=== PATIENT | female | born 2000 | race Caucasian/White ===

== ENCOUNTER 2018-02-10 21:13 | Emergency (ER) | payer OTHER ==
[~2018-02-10] VITALS: Ht 170.2 cm; Wt 52.2 kg
[2018-02-10] MEDS ORDERED: MIDAZOLAM HCL 2 MG/2 ML VIAL IM STA (22:05)
[2018-02-10] MEDS ORDERED: ONDANSETRON HCL 4 MG ORAL DISINTEGRATING TAB PO ONE ×2 (22:45)
[2018-02-10 23:27] VITALS: BP 120/70
== END 2018-02-10 23:18 | disposition home or self-care (01) ==
LOC: FSED 21:13
DX: S50.01XA Contusion of right elbow, initial encounter (principal); S50.11XA Contusion of right forearm, initial encounter; S60.211A Contusion of right wrist, initial encounter; F44.5 Conversion disorder with seizures or convulsions
CPT/HCPCS: 99283

== ENCOUNTER 2018-03-27 13:36 | Emergency (ER) | payer OTHER ==
[~2018-03-27] VITALS: Ht 170.2 cm; Wt 52.2 kg
[2018-03-27] MEDS ORDERED: MIDAZOLAM HCL 2 MG/2 ML VIAL ONE ×2 (14:15→14:45)
[2018-03-27 14:25] LABS: BASOPHILS % 0.6 % (0.0-1.0); EOSINOPHILS # (AUTO) 0.1 (0.0-0.4); EOSINOPHILS % 1.7 % (0.0-6.0); HEMATOCRIT 39.2 % (34.2-44.1); HEMOGLOBIN 13.1 g/dL (12.0-16.0); LYMPHOCYTES # (AUTO) 1.6 (1.0-3.2); LYMPHOCYTES % 21.9 % (18.0-39.1); MEAN CORPUSCULAR HGB CONC 33.4 g/dL (31-35); MEAN CORPUSCULAR VOLUME 89.7 fL (81-99); MONOCYTES % 13.4 % (4.4-11.3); NEUTROPHILS # (AUTO) 4.4 (2.1-6.9); NEUTROPHILS % 62.1 % (38.7-80.0); PLATELET COUNT 281 x10e3/uL (140-360); RED BLOOD COUNT 4.37 x10e6/uL (3.6-5.1); RED CELL DISTRIBUTION WIDTH 12.5 % (11.7-14.4)
[2018-03-27 14:47] LABS: ALANINE AMINOTRANSFERASE 12 IU/L (0-55); ALBUMIN/GLOBULIN RATIO 1.3 (0.8-2.0); ALKALINE PHOSPHATASE 91 IU/L (40-150); ANION GAP 12.9 mmol/L (8-16); BLOOD UREA NITROGEN 7 mg/dL (7-26); BUN/CREATININE RATIO 9 (6-25); CALCIUM 9.9 mg/dL (8.4-10.2); CARBON DIOXIDE 25 mmol/L (22-29); CHLORIDE 105 mmol/L (98-107); CREATININE, SERUM 0.78 mg/dL (0.57-1.11); EST GLOMERULAR FILTRATION RATE > 60 ML/MIN (60-); GLUCOSE 106 mg/dL (74-118); POTASSIUM 3.9 mmol/L (3.5-5.1); SODIUM 139 mmol/L (136-145)
[2018-03-27 17:19] LABS: BILIRUBIN,URINE NEGATIVE (NEGATIVE); CLARITY,URINE CLEAR (CLEAR); COLOR,URINE YELLOW (YELLOW); KETONES,URINE NEGATIVE (NEGATIVE); LEUKOCYTE ESTERASE ,URINE NEGATIVE (NEGATIVE); NITRITE,URINE NEGATIVE (NEGATIVE); PROTEIN,URINE DIPSTICK NEGATIVE (NEGATIVE); URINE UROBILINOGEN 0.2 mg/dL (0.2 - 1)
[2018-03-27 17:20] LABS: AMPHETAMINES SCREEN,URINE NEGATIVE (NEGATIVE); BENZODIAZEPINES SCREEN,URINE NEGATIVE (NEGATIVE); PHENCYCLIDINE SCREEN,URINE NEGATIVE (NEGATIVE)
[2018-03-27 17:29] LABS: BACTERIA,URINE MODERATE /HPF; EPITHELIAL CELLS,URINE MODERATE /LPF; TRANSITIONAL EPI CELLS,URINE FEW
[2018-03-27 17:59] VITALS: BP 106/78
== END 2018-03-27 17:56 | disposition home or self-care (01) ==
LOC: ER 13:36
DX: R56.9 Unspecified convulsions (principal)
CPT/HCPCS: 36415; 80053; 80307; 81001; 85025; 99284; J2250

== ENCOUNTER → 2018-06-20 | Day surgery (SDC) | payer OTHER ==
[~2018-06-20] VITALS: Ht 170.2 cm; Wt 49.9 kg
[~2018-06-20] MED LIST: ALBUTEROL0.63 MG/3 INH; DIPHENHYDRAMINE HCL 25 MG CAP ONE; FENTANYL CITRATE/PF 100MCG/2 ML INJ ONE; FLUDROCORTISON0.1 MG PO; LIDOCAINE 1% W/EPINEPHRINE 20 ML VIAL ONE; LIDOCAINE HCL 2% LOCAL 20 ML VIAL ONE; ZOLOFT50 MG PO
--- OUTSIDE RECORDS SUMMARY | 2018-06-20 11:05 | XMS REPORT | Clinical Summary ---
Author Author [facility] Address Unknown Phone Unavailable Care Team Providers Care Inventory Planner Name Role Phone Tonya Siegel MD PCP Allergies Comments Active Allergy Reactions Severity Noted Date Lorazepam 01/08/2018 No Known Drug Allergies 09/03/2015 Hydrocodone-Acetaminophen 09/17/2015 Medications End Date Status Medication Sig Dispensed Refills Start Date Active clonAZEPAM (KlonoPIN) 0.5 Take 1 tablet 0 11/18/201 MG disintegrating tablet by mouth 2 8 (two) times a day as needed. 01/08/2018 Discontinued medroxyPROGESTERone Inject 150 mg 0 (DEPO-PROVERA) 150 mg/mL into the injection shoulder, thigh, or buttocks every 3 (three) months. 01/08/2018 Discontinued sertraline (ZOLOFT) 50 MG TAKE 1/2 A 90 tablet 0 02/04/201 tablet TABLET BY 7 MOUTH EVERY DAY AFTER EATING FOR 1 WEEK, THEN INCREASE TO 1 TABLET BY MOUTH EVERY DAY AFTER EATING. 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 Urinary tract infection 09/03/2015 Retention of urine 09/03/2015 Encounters Care Team Description Date Type Specialty Mohit Reese MD 04/17/2018 Hospital Access Encounter N/A 04/17/2018 Intake Access Nito Cabezas MD Teqwimuah, Remy, DO Episode of shaking (Primary Dx); Side effects of treatment, initial encounter 01/08/2018 Emergency Emergency Medicine N/A 01/08/2018 Intake Access after 06/19/2017 Social History Date Tobacco Use Types Packs/Day Years Used Never Smoker Smokeless Tobacco: Never Used Alcohol Use Drinks/Week oz/Week Comments No Sex Assigned at Date Recorded Not on file Industry Job Start Date Occupation Not on file Not on file Not on file Travel End Travel History Travel Start No recent travel history available. Last Filed Vital Signs Time Taken Vital Sign Reading 01/08/2018 5:00 PM CDT Blood Pressure 94/59 01/08/2018 5:00 PM CDT Pulse 96 01/08/2018 5:00 PM CDT Temperature 37 C (98.6 F) 01/08/2018 5:00 PM CDT Respiratory Rate 20 01/08/2018 5:00 PM CDT Oxygen Saturation 99% - Inhaled Oxygen - Concentration 01/08/2018 12:02 AM CDT Weight 52.2 kg (115 lb) 01/08/2018 12:02 AM CDT Height 172.7 cm (5' 8") 01/08/2018 12:02 AM CDT Body Mass Index 17.49 Plan of Treatment Health Maintenance Due Date Last Done Comments CHLAMYDIA SCREENING 2014 MENINGOCOCCAL VACCINE (1 2014 - 2-dose series) INFLUENZA VACCINE 02/12/2018 HEPATITIS B VACCINES Aged Out No longer eligible based on patient's age to complete this topic IPV VACCINES Aged Out No longer eligible based on patient's age to complete this topic Procedures Comments Procedure Name Priority Date/Time Associated Diagnosis ZZESTIMATED GFR Routine 01/08/2018 3:44 AM CDT BASIC METABOLIC PANEL Routine 01/08/2018 3:44 AM CDT HC COMPLETE BLD COUNT Routine 01/08/2018 W/AUTO DIFF 3:[address] HEAD WO CONTRAST STAT 01/08/2018 1:07 AM CDT URINE DRUGS OF ABUSE STAT 01/08/2018 SCREEN 12:39 AM CDT ZZESTIMATED GFR STAT 01/08/2018 12:05 AM CDT HCG QUALITATIVE, SERUM STAT 01/08/2018 SCREEN 12:05 AM CDT ALCOHOL LEVEL, BLOOD STAT 01/08/2018 12:05 AM CDT HC COMPLETE BLD COUNT STAT 01/08/2018 W/AUTO DIFF 12:05 AM CDT BASIC METABOLIC PANEL STAT 01/08/2018 12:05 AM CDT after 06/19/2017 Results * Estimated GFR (01/08/2018 3:44 AM CDT) Only the most recent of 2 results within the time period is included. GFR Non Af Amer >90 mL/min/1.73 m2 [facility] DEPARTMENT OF PATHOLOGY AND GENOMIC MEDICINE GFR Af Amer >90 mL/min/1.73 m2 [facility] DEPARTMENT OF Comment: PATHOLOGY AND Chronic kidney disease: <60 GENOMIC MEDICINE mL/min/1.73m2 Kidney failure: <15 mL/min/1.73m2 The estimated GFR is calculated from the IDMS-traceable Modification of Diet in Renal Disease Equation. The accuracy of the calculation is poor when the creatinine is normal. Calculated values >90 mL/min/1.73m2 are not reported. This equation has not been validated in children (<18 years), women, the elderly (>70 years), or ethnic groups other than Caucasians and Americans. Specimen Plasma specimen Performing Organization Address City/State/Zipcode Phone Number [facility] [place] [address] [place] [address] PATHOLOGY AND [employer] MEDICINE * CBC with platelet and differential (01/08/2018 3:44 AM CDT) Only the most recent of 2 results within the time period is included. WBC 11.35 (H) 4.50 - 11.00 k/uL [facility] DEPARTMENT OF PATHOLOGY AND GENOMIC MEDICINE RBC 4.14 (L) 4.20 - 5.50 m/uL [facility] DEPARTMENT OF PATHOLOGY AND GENOMIC MEDICINE HGB 12.0 12.0 - 16.0 g/dL [facility] DEPARTMENT OF PATHOLOGY AND GENOMIC MEDICINE HCT 36.3 (L) 37.0 - 47.0 % [facility] DEPARTMENT OF PATHOLOGY AND GENOMIC MEDICINE MCV 87.7 82.0 - 100.0 fL [facility] DEPARTMENT OF PATHOLOGY AND GENOMIC MEDICINE MCH 29.0 27.0 - 34.0 pg [facility] DEPARTMENT OF PATHOLOGY AND GENOMIC MEDICINE MCHC 33.1 31.0 - 37.0 g/dL [facility] DEPARTMENT OF PATHOLOGY AND GENOMIC MEDICINE RDW - SD 41.3 37.0 - 55.0 fL [facility] DEPARTMENT OF PATHOLOGY AND GENOMIC MEDICINE MPV 9.2 8.8 - 13.2 fL [facility] DEPARTMENT OF PATHOLOGY AND GENOMIC MEDICINE Platelet count 290 150 - 400 k/uL [facility] DEPARTMENT OF PATHOLOGY AND GENOMIC MEDICINE Nucleated RBC 0.00 /100 WBC [facility] DEPARTMENT OF PATHOLOGY AND GENOMIC MEDICINE Neutrophils 50.3 39.0 - 69.0 % [facility] DEPARTMENT OF PATHOLOGY AND GENOMIC MEDICINE Lymphocytes 40.2 25.0 - 45.0 % [facility] DEPARTMENT OF PATHOLOGY AND GENOMIC MEDICINE Monocytes 7.6 0.0 - 10.0 % [facility] DEPARTMENT OF PATHOLOGY AND GENOMIC MEDICINE Eosinophils 1.2 0.0 - 5.0 % [facility] DEPARTMENT OF PATHOLOGY AND GENOMIC MEDICINE Basophils 0.4 0.0 - 1.0 % [facility] DEPARTMENT OF PATHOLOGY AND GENOMIC MEDICINE Specimen Blood Performing Organization Address [facility] Phone Number [address] [place] [address] PATHOLOGY [facility] GENOMIC [facility] * Basic metabolic panel (01/08/2018 3:44 AM CDT) Only the most recent of 2 results within the time period is included. Sodium 137 135 - 148 mEq/L [facility] DEPARTMENT OF PATHOLOGY AND GENOMIC MEDICINE Potassium 4.2 3.5 - 5.0 mEq/L [facility] DEPARTMENT OF PATHOLOGY AND GENOMIC MEDICINE Chloride 106 98 - 112 mEq/L [facility] DEPARTMENT OF PATHOLOGY AND GENOMIC MEDICINE CO2 22 (L) 24 - 31 mEq/L [facility] DEPARTMENT OF PATHOLOGY AND GENOMIC MEDICINE Anion gap 9@ANIO 7 - 15 mEq/L [facility] DEPARTMENT OF PATHOLOGY AND GENOMIC MEDICINE BUN 12 6 - 20 mg/dL [facility] DEPARTMENT OF PATHOLOGY AND GENOMIC MEDICINE Creatinine 0.8 0.5 - 0.9 mg/dL [facility] DEPARTMENT OF PATHOLOGY AND GENOMIC MEDICINE Glucose 98 65 - 99 mg/dL [facility] DEPARTMENT OF PATHOLOGY AND GENOMIC MEDICINE Calcium 9.0 8.3 - 10.2 mg/dL [facility] DEPARTMENT OF PATHOLOGY AND GENOMIC MEDICINE Specimen Plasma specimen Performing Organization Address City/[facility] Phone Number [address] [place] [address] PATHOLOGY AND GENOMIC MEDICINE * CT Head Wo Contrast (01/08/2018 1:07 AM CDT) Narrative Performed At EXAMINATION:[facility] HEAD WO [facility] CLINICAL HISTORY:seizures COMPARISON:Head CT and MRI on 12/11/2016 TECHNIQUE: Noncontrast head CT performed using radiation dose reduction techniques.Technical factors are evaluated and adjusted to ensure appropriate moderation of exposure.Automated dose management technology is applied to adjust radiation exposure while achieving a diagnostic quality image. FINDINGS: The brain appears stable and unremarkable with no evidence of hemorrhage, mass lesion, or midline shift. Killian-white matter differentiation is preserved with no evidence of acute territorial infarction. Ventricles, sulci, and cisterns are stable and normal in size and configuration. There is no extra-axial fluid collection. Visualized paranasal sinuses and mastoid air cells are clear. Bones, orbits, and soft tissues are unremarkable. IMPRESSION: Stable unremarkable head CT with no evidence of acute intracranial abnormality. [id number] Procedure Note Interface, Radiology Results Incoming - 01/08/2018 1:15 AM CDT EXAMINATION: CT HEAD WO CONTRAST CLINICAL HISTORY: seizures COMPARISON: Head CT and MRI on 12/11/2016 TECHNIQUE: Noncontrast head CT performed using radiation dose reduction techniques. Technical factors are evaluated and adjusted to ensure appropriate moderation of exposure. Automated dose management technology is applied to adjust radiation exposure while achieving a diagnostic quality image. FINDINGS: The brain appears stable and unremarkable with no evidence of hemorrhage, mass lesion, or midline shift. Killian-white matter differentiation is preserved with no evidence of acute territorial infarction. Ventricles, sulci, and cisterns are stable and normal in size and configuration. There is no extra-axial fluid collection. Visualized paranasal sinuses and mastoid air cells are clear. Bones, orbits, and soft tissues are unremarkable. IMPRESSION: Stable unremarkable head CT with no evidence of acute intracranial abnormality. [id number] Performing Organization Address City/State/Zipcode Phone Number [facility] [address] [place] [address] * Urine drugs of abuse screen (01/08/2018 12:39 AM CDT) Amphetamine screen, urine Negative [facility] DEPARTMENT OF PATHOLOGY AND GENOMIC MEDICINE Methamphetamine screen, Negative [facility] DEPARTMENT OF urine PATHOLOGY AND GENOMIC MEDICINE Barbiturate screen, urine Negative [facility] DEPARTMENT OF PATHOLOGY AND GENOMIC MEDICINE Benzodiazepine screen, Positive (A) [facility] DEPARTMENT OF urine PATHOLOGY AND GENOMIC MEDICINE Cocaine screen, urine Negative [facility] DEPARTMENT OF PATHOLOGY AND GENOMIC MEDICINE Methadone screen, urine Negative [facility] DEPARTMENT OF PATHOLOGY AND GENOMIC MEDICINE Opiates screen, urine Negative [facility] DEPARTMENT OF PATHOLOGY AND GENOMIC MEDICINE Phencyclidine screen, Negative [facility] DEPARTMENT OF urine PATHOLOGY AND GENOMIC MEDICINE Cannabinoid screen, urine Negative [facility] DEPARTMENT OF PATHOLOGY AND GENOMIC MEDICINE Tricyclic screen, urine Negative [facility] DEPARTMENT OF Comment: PATHOLOGY AND Drug screen minimum GENOMIC MEDICINE concentration of detectability Amphetamines 1000 ng/mL Methamphetamines 1000 ng/mL Barbiturates 300 ng/mL Benzodiazepines 300 ng/mL Cocaine 300 ng/mL Methadone 300 ng/mL Opiates 300 ng/mL Phencyclidine 25 ng/mL Cannabinoids 50 ng/mL Tricyclics 1000 ng/mL Negative test results indicates presumptive evidence of lack of clinically significant drug concentration in this urine specimen. Positive test results are presumptive evidence of clinically significant drug concentration in this urine specimen. Testing performed for medical purposes only. Specimen Urine Performing Organization Address [facility] Phone Number [address] [place] [address] PATHOLOGY AND GENOMIC MEDICINE * hCG qualitative, serum screen (01/08/2018 12:05 AM CDT) hCG qualitative, serum Negative [facility] DEPARTMENT OF PATHOLOGY AND GENOMIC MEDICINE Specimen Blood Performing Organization Address [facility] Phone Number [address] [place] [address] PATHOLOGY AND GENOMIC MEDICINE * Alcohol level, blood (01/08/2018 12:05 AM CDT) Alcohol None Detected mg/dL [facility] DEPARTMENT OF Comment: PATHOLOGY AND Normal GENOMIC MEDICINE None Detected Legal Intoxication in [place]80 mg/dL (0.08%) - Whole Blood Toxic Concentration 200 mg/dL (0.2%) Potentially Fatal3 50 - 500 mg/dL (0.35 - 0.5%) Alcohol percent None Detected % [facility] DEPARTMENT OF PATHOLOGY AND GENOMIC MEDICINE Specimen Plasma specimen Performing Organization Address [facility] Phone Number [address] [place] [address] PATHOLOGY AND GENOMIC MEDICINE after 06/19/2017 Insurance Payer Benefit Subscriber ID Type Phone Address Plan / Group [facility] xxxxxxxxx HMO/PPO THCARE CHOICE/CHO ICE + Advance Directives Patient has advance care planning documents, and code status on file. For more i nformation, please contact: Venancio Arce [address] [place] [address] Date Inactivated Comments Code Status Date Activated 01/08/2018 11:27 PM Full Code 01/08/2018 2:10 AM Code Status decision reached by: Patient
--- OUTSIDE RECORDS SUMMARY | 2018-06-20 11:05 | XMS REPORT | Summary of Care ---
Author Author Carline Moran M.A. Organization Unknown Address Unknown Phone Unavailable Care Team Providers Care Geology Associate Name Role Phone KEYANNA DYKES M.D. Unavailable Unavailable Carline Moran M.A. 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 Active LamoTRIgine 25 MG Oral Tablet TAKE 4 TABLET Once TDD:100mg * Quantity: 120 Refills: 0 KEYANAN DYKES M.D. * Start : 14-Jan-2018 Active Allergies and Adverse Reactions Name Dates Details Ativan (Allergy) Reaction: Hallucinations (Severe) Status: Active Procedures Procedure Dates Details Procedures not documented Immunization Name Dates Details Immunizations not documented Social History Name Dates Details Unknown if ever smoked Vital Signs Date Test Result Details 14-Jan-20189:06 BP Systolic 117 mm[Hg] Status: BP Diastolic 80 mm[Hg] Status: Height 68 in Status: Physical Findings 93 Status: Comments: 2-20 Stature Percentile Weight 116.5 lb Status: Body Mass Index Calculated 17.71 kg/m2 Status: Body Surface Area Calculated 1.62 m2 Status: Physical Findings 30 Status: Comments: 2-20 Weight Percentile Physical Findings 5 Status: Comments: BMI Percentile Heart Rate 93 /min Status: Results Date Description Value Details Results not documented Plan of Care Name Dates Details Planned Observations Planned Goals not documented Planned Encounters Neuropsychology Evaluation at [facility] Referral Appointment; KEYANNA DYKES M.D. On: 15-Apr-2018 8:30 Instructions Name Dates Details Instructions not documented Encounters Appointment; PENELOPE SCHRADER M.D. Encounter Diagnosis: Problem not documented On: 30-Aug-2017 13:00 Appointment; PENELOPE SCHRADER M.D. Encounter Diagnosis: Problem not documented On: 16-Dec-2017 9:00 Appointment; KEYANNA DYKES M.D. Encounter Diagnosis: Problem not documented On: 14-Jan-2018 9:30
--- OUTSIDE RECORDS SUMMARY | 2018-06-20 11:05 | XMS REPORT ---
[facility] Address Unknown Phone Unavailable Care Team Providers Care Open Hearth Worker Name Role Phone Unavailable Unavailable Payers Payer Name Policy Type Policy Number Effective Date Expiration Date Problems This patient has no known problems. Allergies, Adverse Reactions, Alerts Allergy Name Allergy Type Status Severity Reaction(s) Onset Date Inactive Date Treating Clinician Comments lorazepam DA Active SV 2018-04-14 00:00:00 lorazepam DA Active SV 2018-04-02 00:00:00 No Known Allergies DA Active U 2017-07-23 00:00:00 Medications This patient has no known medications.
[2018-06-20 11:20] VITALS: BP 111/71
--- NOTE | 2018-06-20 16:10 | Operative Report ---
DATE OF PROCEDURE: June 20, 2018 INDICATIONS: End of life ILR. PROCEDURE PERFORMED: Explant of insertable loop recorder. COMPLICATIONS: None. BLOOD LOSS: 10 mL. The left anterior chest wall was anesthetized using subcutaneous lidocaine. A skin incision was made. The implant was identified and explanted without complications. Subcutaneous tissue approximated using Vicryl. Skin approximated using Dermabond. Patient was discharged home same day. Job#: [id number]
== END | disposition home or self-care (01) ==
LOC: CATH LAB 10:56
PROVIDERS: ATTEND Internal Medicine Interventional Cardiology
DX: Z45.09 Encounter for adjustment and management of other cardiac device (principal); A69.22 Other neurologic disorders in Lyme disease; R00.2 Palpitations; R55 Syncope and collapse; F44.5 Conversion disorder with seizures or convulsions; Z01.812 Encounter for preprocedural laboratory examination; Z79.82 Long term (current) use of aspirin
CPT/HCPCS: 33284; 81025; J2001

== ENCOUNTER 2018-09-09 18:04 | Emergency (ER) | payer OTHER ==
[~2018-09-09] VITALS: Ht 170.2 cm; Wt 49.9 kg
[~2018-09-09 18:04] MED LIST changes: -DIPHENHYDRAMINE HCL 25 MG CAP ONE; -FENTANYL CITRATE/PF 100MCG/2 ML INJ ONE; -LIDOCAINE 1% W/EPINEPHRINE 20 ML VIAL ONE; -LIDOCAINE HCL 2% LOCAL 20 ML VIAL ONE
--- OUTSIDE RECORDS SUMMARY | 2018-09-09 18:06 | XMS REPORT | Clinical Summary ---
Author Author [facility] Organization [facility] Address Unknown Phone Unavailable Care Team Providers Care Metal Room Dental Technician Name Role Phone Tonya Siegel MD PCP [...] Emergency Medicine N/A 01/08/2018 Intake Access after 09/08/2017 Social History Date Tobacco Use Types Packs/Day [...] Date Last Done Comments CHLAMYDIA SCREENING 2014 INFLUENZA VACCINE 02/12/2018 Procedures Comments Procedure Name Priority Date/Time Associated [...] PANEL STAT 01/08/2018 12:05 AM CDT after 09/08/2017 Results * Estimated GFR (01/08/2018 3:44 AM CDT) Only the most recent of 2 results within the time period is included. GFR Non Af Amer >90 mL/min/1.73 m2 [facility] DEPARTMENT OF PATHOLOGY AND GENOMIC MEDICINE GFR Af Amer >90 mL/min/1.73 m2 [facility] DEPARTMENT OF Comment: PATHOLOGY AND Chronic kidney [...] specimen Performing Organization Address City/State/Zipcode Phone Number [facility] [place] [address] [place] [address] PATHOLOGY AND [place] [facility] * CBC with platelet and differential (01/08/2018 3:44 AM CDT) Only the most recent of 2 results within the time period is included. WBC 11.35 (H) 4.50 - 11.00 k/uL [facility] DEPARTMENT OF PATHOLOGY AND GENOMIC MEDICINE RBC 4.14 (L) 4.20 - 5.50 m/uL [facility] DEPARTMENT OF PATHOLOGY AND GENOMIC MEDICINE HGB 12.0 12.0 - 16.0 g/dL [facility] DEPARTMENT OF PATHOLOGY AND GENOMIC MEDICINE HCT 36.3 (L) 37.0 - 47.0 % [facility] DEPARTMENT OF PATHOLOGY AND GENOMIC MEDICINE MCV 87.7 82.0 - 100.0 fL [facility] DEPARTMENT OF PATHOLOGY AND GENOMIC MEDICINE MCH 29.0 27.0 - 34.0 pg [facility] DEPARTMENT OF PATHOLOGY AND GENOMIC MEDICINE MCHC 33.1 31.0 - 37.0 g/dL [facility] DEPARTMENT OF PATHOLOGY AND GENOMIC MEDICINE RDW - SD 41.3 37.0 - 55.0 fL [facility] DEPARTMENT OF PATHOLOGY AND GENOMIC MEDICINE MPV 9.2 8.8 - 13.2 fL [facility] DEPARTMENT OF PATHOLOGY AND GENOMIC MEDICINE Platelet count 290 150 - 400 k/uL [facility] DEPARTMENT OF PATHOLOGY AND GENOMIC MEDICINE Nucleated RBC 0.00 /100 WBC [facility] DEPARTMENT OF PATHOLOGY AND GENOMIC MEDICINE Neutrophils 50.3 39.0 - 69.0 % [facility] DEPARTMENT OF PATHOLOGY AND GENOMIC MEDICINE Lymphocytes 40.2 25.0 - 45.0 % [facility] DEPARTMENT OF PATHOLOGY AND GENOMIC MEDICINE Monocytes 7.6 0.0 - 10.0 % [facility] DEPARTMENT OF PATHOLOGY AND GENOMIC MEDICINE Eosinophils 1.2 0.0 - 5.0 % [facility] DEPARTMENT OF PATHOLOGY AND GENOMIC MEDICINE Basophils 0.4 0.0 - 1.0 % [facility] DEPARTMENT OF PATHOLOGY AND GENOMIC MEDICINE Specimen Blood Performing Organization Address [facility] [place] Phone Number [address] [place] [address] PATHOLOGY [facility] * Basic metabolic panel (01/08/2018 3:44 AM CDT) Only the most recent of 2 results within the time period is included. Sodium 137 135 - 148 mEq/L [facility] DEPARTMENT OF PATHOLOGY AND GENOMIC MEDICINE Potassium 4.2 3.5 - 5.0 mEq/L [facility] DEPARTMENT OF PATHOLOGY AND GENOMIC MEDICINE Chloride 106 98 - 112 mEq/L [facility] DEPARTMENT OF PATHOLOGY AND GENOMIC MEDICINE CO2 22 (L) 24 - 31 mEq/L [facility] DEPARTMENT OF PATHOLOGY AND GENOMIC MEDICINE Anion gap 9@ANIO 7 - 15 mEq/L [facility] DEPARTMENT OF PATHOLOGY AND GENOMIC MEDICINE BUN 12 6 - 20 mg/dL [facility] DEPARTMENT OF PATHOLOGY AND GENOMIC MEDICINE Creatinine 0.8 0.5 - 0.9 mg/dL [facility] DEPARTMENT OF PATHOLOGY AND GENOMIC MEDICINE Glucose 98 65 - 99 mg/dL [facility] DEPARTMENT OF PATHOLOGY AND GENOMIC MEDICINE Calcium 9.0 8.3 - 10.2 mg/dL [facility] DEPARTMENT OF PATHOLOGY AND GENOMIC MEDICINE Specimen Plasma specimen Performing Organization Address City/[facility] [[email or web address] Phone Number [address] [place] [address] PATHOLOGY [facility] * CT Head Wo Contrast (01/08/2018 1:07 AM CDT) Narrative Performed At EXAMINATION:CT HEAD WO CONTRAST [facility] CLINICAL HISTORY:seizures COMPARISON:Head CT and MRI on [...] with no evidence of acute intracranial abnormality. [id number] Procedure Note Interface, Radiology Results Incoming - [...] with no evidence of acute intracranial abnormality. [id number] Performing Organization Address City/State/Zipcode Phone Number [facility] [address] [place] [address] * Urine drugs of abuse screen (01/08/2018 12:39 AM CDT) Amphetamine screen, urine Negative [facility] DEPARTMENT OF PATHOLOGY AND GENOMIC MEDICINE Methamphetamine screen, Negative [facility] DEPARTMENT OF urine PATHOLOGY AND GENOMIC MEDICINE Barbiturate screen, urine Negative [facility] DEPARTMENT OF PATHOLOGY AND GENOMIC MEDICINE Benzodiazepine screen, Positive (A) [facility] DEPARTMENT OF urine PATHOLOGY AND GENOMIC MEDICINE Cocaine screen, urine Negative [facility] DEPARTMENT OF PATHOLOGY AND GENOMIC MEDICINE Methadone screen, urine Negative [facility] DEPARTMENT OF PATHOLOGY AND GENOMIC MEDICINE Opiates screen, urine Negative [facility] DEPARTMENT OF PATHOLOGY AND GENOMIC MEDICINE Phencyclidine screen, Negative [facility] DEPARTMENT OF urine PATHOLOGY AND GENOMIC MEDICINE Cannabinoid screen, urine Negative [facility] DEPARTMENT OF PATHOLOGY AND GENOMIC MEDICINE Tricyclic screen, urine Negative [facility] DEPARTMENT OF Comment: PATHOLOGY AND Drug screen [...] purposes only. Specimen Urine Performing Organization Address [facility] [[email or web address] Phone Number [address] [place] [address] PATHOLOGY AND GENOMIC MEDICINE * hCG qualitative, serum screen (01/08/2018 12:05 AM CDT) hCG qualitative, serum Negative [facility] DEPARTMENT OF PATHOLOGY AND GENOMIC MEDICINE Specimen Blood Performing Organization Address [facility] [place] [facility] Phone Number [address] [place] [address] PATHOLOGY AND GENOMIC MEDICINE * Alcohol level, blood (01/08/2018 12:05 AM CDT) Alcohol None Detected mg/dL [facility] DEPARTMENT OF Comment: PATHOLOGY AND Normal GENOMIC MEDICINE None Detected Legal Intoxication in [place]80 mg/dL (0.08%) - Whole Blood Toxic Concentration 200 mg/dL (0.2%) Potentially Fatal3 50 - 500 mg/dL (0.35 - 0.5%) Alcohol percent None Detected % [facility] DEPARTMENT OF PATHOLOGY AND GENOMIC MEDICINE Specimen Plasma specimen Performing Organization Address [facility] [place] [facility] Phone Number [address] [place] [address] PATHOLOGY AND GENOMIC MEDICINE after 09/08/2017 Insurance Payer Benefit Subscriber ID Type Phone Address Plan / Group [facility] xxxxxxxxx HMO/PPO THCARE CHOICE/CHO ICE + Advance Directives Patient has advance care planning documents, and code status on file. For more i nformation, please contact: Venancio Arce [address] [place] [address] Date Inactivated Comments Code Status Date Activated 01/08/2018 11:27 PM Full Code 01/08/2018 2:10 AM Code Status decision reached by: Patient
--- NOTE | 2018-09-09 18:36 | NUR ---
pt to go to ct, pt on phone, pt's mom states pt is on phone with spouse in and wants to wait for ct, but then mom states she doesn't want to have to wait for thirty extra mins though.
--- NOTE | 2018-09-09 19:10 | NUR ---
pt had syncopal episode in hallway on the way back from CT; pt did not hit head, no injuries noted; pt mom states this happens 5 times a day sometimes 10 times in a day; pt placed back in bed and placed on 2l nc and placed on full cardiac monitoring; vss stable at this time, resp even and nonlab, [id number];
--- NOTE | 2018-09-09 19:36 | Diagnostic Imaging Report ---
EXAMINATION: Head CT without contrast. HISTORY:Trauma, fall complains of headache and blurred vision. COMPARISON:None. TECHNIQUE: Multidetector axial images were obtained from the foramen magnum to the vertex without contrast. The images were reconstructed using brain and bone algorithms. Thin section brain images were reformatted into coronal and sagittal planes. Dose modulation, iterative reconstruction, and/or weight based adjustment of the mA/kV was utilized to reduce the radiation dose to as low as reasonably achievable. Intravenous contrast: None IMAGE QUALITY: Suboptimal evaluation particularly of the skull base and posterior fossa structures due to streak artifacts. FINDINGS: Skull/scalp: No lytic or blastic. lesions. No surgical changes. Parenchyma: Focal hypodensity in the posterior and inferior aspect of left lentiform nucleus represents prominent perivascular space or an age indeterminate lacunar infarct. Questionable hypodensity in right frontal abraham radiata likely represents an artifact. No acute hemorrhage, mass or acute major vascular territorial infarct. Arteries: No density suggestive of thrombosis. Dural sinuses: No abnormal density suggestive of thrombosis. Ventricles: No hydrocephalus or displacement. Extra-axial spaces: No abnormal density. Brain volume: Normal for age. Craniocervical junction: No mass, Chiari malformation, or basilar invagination. Sella: No mass. Paranasal/mastoid sinuses: Imaged portions unremarkable. IMPRESSION: 1. Suboptimal evaluation due to motion-related streak artifacts, despite the limitation no gross acute posttraumatic intracranial abnormality. 2. Prominent perivascular space vs age indeterminate lacunar infarct in posterior and inferior aspect of left lentiform nucleus. Signed by: Dr. Gely Marques M.D. on 09/09/2018 7:33 PM
[2018-09-09 20:35] VITALS: BP 108/59
== END 2018-09-09 20:42 | disposition home or self-care (01) ==
LOC: FSED 18:04
DX: F07.81 Postconcussional syndrome (principal); R55 Syncope and collapse; W01.198A Fall on same level from slipping, tripping and stumbling with subsequent striking against other object, initial encounter; Y92.008 Other place in unspecified non-institutional (private) residence as the place of occurrence of the external cause
CPT/HCPCS: 70450; 99283

== ENCOUNTER 2019-03-26 17:43 | Emergency (ER) | payer OTHER ==
[~2019-03-26] VITALS: Ht 172.7 cm; Wt 49.0 kg
--- OUTSIDE RECORDS SUMMARY | 2019-03-26 17:46 | XMS REPORT | Clinical Summary ---
Author Author [facility] Organization [facility] Address Unknown Phone Unavailable Care Team Providers Care Farm Operator Name Role Phone Tonya Siegel MD PCP Allergies Comments Active Allergy Reactions Severity Noted Date Lorazepam 01/08/2018 No Known Drug Allergies 09/03/2015 Hydrocodone-Acetaminophen 09/17/2015 Medications End Date Status Medication Sig Dispensed Refills Start Date Active clonAZEPAM (KlonoPIN) 0.5 Take 1 tablet 0 11/18/201 MG disintegrating tablet by mouth 2 8 (two) times a day as needed. Active Problems Problem Noted Date Episode of [...] Hospital Access Encounter N/A 04/17/2018 Intake Access after 03/25/2018 Social History Date Tobacco Use Types Packs/Day Years Used Never Smoker Smokeless Tobacco: Never Used Drinks/Week oz/Week Comments Alcohol Use No Sex Assigned at Date Recorded Not on file Industry Job Start Date Occupation Not on file Not on file Not on file Travel End Travel History Travel Start No recent travel history available. 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
--- OUTSIDE RECORDS SUMMARY | 2019-03-26 17:46 | XMS REPORT | Continuity of Care Document ---
Author Author [employer] Organization [employer] Address Unknown Phone Unavailable Care Team Providers Care Registered Nurse First Assistant Name Role Phone [facility] [employer] Unavailable Unavailable Problems No Data Provided for This Section Medications Medication Details Route Status Patient Instructions Ordering Provider Order Date Source Albuterol Sulfate 0.63 Mg/3 Ml Vial.neb As Needed as needed for Shortness Of Breath Active [facility] Fludrocortisone Acetate 0.1 Mg Tab Bedtime Active [facility] Sertraline Hcl (Zoloft) 50 Mg Tablet Bedtime Active [facility] Allergies, Adverse Reactions, Alerts Substance Category Reaction Severity Reaction type Status Date Reported Comments Source Lorazepam HALLUCINATIONS Severe Allergy to Substance Active 03/27/2018 [facility] Immunizations No Data Provided for This Section Results Order Name Results Value Reference Range Date Interpretation Comments Source Urine human chorionic gonadotropin (hCG) detection NEGATIVE NEGATIVE 06/19/2018 [facility] Urine color determination YELLOW YELLOW 03/27/2018 [facility] Urine clarity CLEAR CLEAR 03/27/2018 [facility] Specific gravity of Urine by Test strip 1.010 1.010 - 1.025 03/27/2018 [facility] Urine pH measurement by automated test strip 7 5 - 7 03/27/2018 [facility] Urine leukocyte esterase detection by dipstick NEGATIVE NEGATIVE 03/27/2018 [facility] Urine nitrite detection NEGATIVE NEGATIVE 03/27/2018 [facility] Urine protein measurement by test strip (mass/volume) NEGATIVE NEGATIVE 03/27/2018 [facility] Urine glucose detection NEGATIVE NEGATIVE 03/27/2018 [facility] Urine ketones detection by automated test strip NEGATIVE NEGATIVE 03/27/2018 [facility] Urine opiates screening test NEGATIVE NEGATIVE 03/27/2018 [facility] Barbiturates screen, urine NEGATIVE NEGATIVE 03/27/2018 [facility] Urine phencyclidine detection by screening method NEGATIVE NEGATIVE 03/27/2018 [facility] Urine amphetamines detection by screen method > 1000 ng/mL NEGATIVE NEGATIVE 03/27/2018 [facility] Urine Methamphetamines Screen NEGATIVE NEGATIVE 03/27/2018 [facility] Urine benzodiazepines detection by screening method NEGATIVE NEGATIVE 03/27/2018 [facility] Urine cocaine measurement (mass/volume) NEGATIVE NEGATIVE 03/27/2018 [facility] Urine cannabinoids detection by screening method NEGATIVE NEGATIVE 03/27/2018 [facility] Urine urobilinogen measurement by test strip (mass/volume) 0.2 0.2 - 1 03/27/2018 [facility] Urine total bilirubin measurement (mass/volume) NEGATIVE NEGATIVE 03/27/2018 [facility] Urine erythrocytes detection NEGATIVE NEGATIVE 03/27/2018 [facility] Automated urine sediment leukocyte count by microscopy (number/high power field) NONE 0 - 5 03/27/2018 [facility] Erythrocytes detection in urine sediment by light microscopy NONE 0 - 5 03/27/2018 [facility] Bacteria detection in urine sediment by light microscopy MODERATE NONE 03/27/2018 [facility] Epithelial cells detection in urine sediment by light microscopy MODERATE NONE 03/27/2018 [facility] Transitional cells detection in urine sediment by light microscopy FEW NONE 03/27/2018 [facility] Blood leukocytes automated count (number/volume) 7.09 4.8 - 10.8 03/27/2018 [facility] Blood erythrocytes automated count (number/volume) 4.37 3.6 - 5.1 03/27/2018 [facility] Blood hemoglobin measurement (moles/volume) 13.1 12.0 - 16.0 03/27/2018 [facility] Automated blood hematocrit (volume fraction) 39.2 34.2 - 44.1 03/27/2018 [facility] Automated erythrocyte mean corpuscular volume 89.7 81 - 99 03/27/2018 [facility] Automated erythrocyte mean corpuscular hemoglobin (mass per erythrocyte) 30.0 28 - 32 03/27/2018 [facility] Automated erythrocyte mean corpuscular hemoglobin concentration measurement (mass/volume) 33.4 31 - 35 03/27/2018 [facility] RDW BldCo-Rto 12.5 11.7 - 14.4 03/27/2018 [facility] Automated blood platelet count (count/volume) 281 140 - 360 03/27/2018 [facility] Automated blood segmented neutrophil count as percentage of total leukocytes 62.1 38.7 - 80.0 03/27/2018 [facility] Automated blood lymphocyte count as percentage ot total leukocytes 21.9 18.0 - 39.1 03/27/2018 [facility] Automated blood monocyte count as percentage of total leukocytes 13.4 4.4 - 11.3 03/27/2018 [facility] Automated blood eosinophil count as percentage of total leukocytes 1.7 0.0 - 6.0 03/27/2018 [facility] Automated blood basophil count as percentage of total leukocytes 0.6 0.0 - 1.0 03/27/2018 [facility] IM GRANULOCYTES % 0.3 0.0 - 1.0 03/27/2018 [facility] Automated blood neutrophil count 4.4 2.1 - 6.9 03/27/2018 [facility] Blood lymphocytes count (number/volume) 1.6 1.0 - 3.2 03/27/2018 [facility] Blood monocytes automated count (number/volume) 1.0 0.2 - 0.8 03/27/2018 [facility] Automated blood eosinophil count 0.1 0.0 - 0.4 03/27/2018 [facility] Automated blood basophil count (count/volume) 0.0 0.0 - 0.1 03/27/2018 [facility] Absolute Immature Granulocyte (auto 0.02 0 - 0.1 03/27/2018 [facility] Serum or plasma sodium measurement (moles/volume) 139 136 - 145 03/27/2018 [facility] Serum or plasma potassium measurement (moles/volume) 3.9 3.5 - 5.1 03/27/2018 [facility] Serum or plasma chloride measurement (moles/volume) 105 98 - 107 03/27/2018 [facility] Serum or plasma carbon dioxide, total measurement (moles/volume) 25 22 - 29 03/27/2018 [facility] Serum or plasma anion gap 12.9 8 - 16 03/27/2018 [facility] Serum or plasma urea nitrogen measurement (mass/volume) 7 7 - 26 03/27/2018 [facility] Serum or plasma creatinine measurement (mass/volume) 0.78 0.57 - 1.11 03/27/2018 [facility] Serum or plasma urea nitrogen/creatinine mass ratio 9 6 - 25 03/27/2018 [facility] Estimated glomerular filtration rate (GFR) determination > 60 60 03/27/2018 [facility] Glucose measurement 106 74 - 118 03/27/2018 [facility] Serum or plasma calcium measurement (mass/volume) 9.9 8.4 - 10.2 03/27/2018 [facility] Serum or plasma total bilirubin measurement (mass/volume) 0.4 0.2 - 1.2 03/27/2018 [facility] Aspartate Amino Transf (AST/SGOT) 20 5 - 34 03/27/2018 [facility] Serum or plasma alanine aminotransferase measurement (enzymatic activity/volume) 12 0 - 55 03/27/2018 [facility] Serum or plasma protein measurement (mass/volume) 7.1 6.5 - 8.1 03/27/2018 [facility] Serum or plasma albumin measurement (mass/volume) 4.0 3.5 - 5.0 03/27/2018 [facility] Plasma globulin measurement (mass/volume) 3.1 2.3 - 3.5 03/27/2018 [facility] Serum or plasma albumin/globulin mass ratio 1.3 0.8 - 2.0 03/27/2018 [facility] Serum or plasma alkaline phosphatase measurement (enzymatic activity/volume) 91 40 - 150 03/27/2018 [facility] Pathology Reports No Data Provided for This Section Diagnostic Reports No Data Provided for This Section Consultation Notes No Data Provided for This Section Discharge Summaries No Data Provided for This Section History and Physicals No Data Provided for This Section Vital Signs No Data Provided for This Section Encounters Location Location Details Encounter Type Encounter Number Reason For Visit Attending Provider ADM Date DC Date Status Source Departed Emergency Room [id number] ANALIA LEVINE MD 02/10/2018 02/10/2018 [facility] Departed Emergency Room [id number] TODD HICKMAN MD 03/27/2018 03/27/2018 [facility] Registered Surgical Day Care [id number] YARELIS FELICIANO MD 06/20/2018 [facility] Departed Emergency Room [id number] JOSEPH GANDHI MD 09/09/2018 09/09/2018 [facility] Procedures Procedure Code Date Perfomer Comments Source REMOVE PAT-ACTIVE HT RECORD 19551 06/20/2018 [facility] Assessment and Plan No Data Provided for This Section Plan of Care Plan of Care Date Source Discharge Date 09/09/18 8:42pm Disposition HOME, SELF-CARE Condition at Discharge Stable Instructions/Education Provided Syncope Concussion/Head Injury - Adult Prescriptions See Medication Section Referrals DIONNA JIN MD Address: [address] [place] [address] Dr Walter [address] [place] [id number] Additional Instructions/Education REST; FOLLOW UP WITH NEUROLOGY; 09/09/2018 [facility] Social History Social History Date Source Social History Problem Response Recorded Date/Time Onset Date Status Hx Substance Use Disorder No 06/19/2018 10:48am Not Applicable Not Applicable Hx Alcohol Use No 06/19/2018 10:48am Not Applicable Not Applicable 09/09/2018 [facility] Family History No Data Provided for This Section Advance Directives Order Name Results Value Date Source Advance Directives Advance Directives Directive Response Recorded Date/Time Does the patient have an advance directive? No 09/09/18 8:57pm If yes, is advance directive on file with [facility]? No 02/10/18 11:14pm If not on file with [facility] will patient provide a copy? No 02/10/18 11:14pm Do you have a Directive to Physician? No 09/09/18 8:57pm Do you have a Medical Power of Supervisor Prep? Yes 09/09/18 8:57pm Do you have an out of hospital Do Not Resuscitate Order? No 09/09/18 7:02pm Do you have any special needs we should be aware of? No 09/09/18 7:02pm Do you have a support person here with you today? Yes 09/09/18 7:02pm Did patient receive Notice of Privacy Practices? Yes 09/09/18 7:02pm Did patient receive patient rights and responsibilities? Yes 09/09/18 7:02pm 09/09/2018 [facility] Functional Status No Data Provided for This Section
[2019-03-26] MEDS ORDERED: SODIUM CHLORIDE 0.9% 1000ML 1,000 ML IV STA (17:54)
[2019-03-26] MEDS ORDERED: SODIUM CHLORIDE 0.9% 1000ML 1,000 ML ONE (18:15)
--- NOTE | 2019-03-26 18:40 | Diagnostic Imaging Report ---
CT BRAIN [facility] HISTORY: Fall COMPARISON: None. TECHNIQUE: Noncontrast axial scans were obtained from skull base to the vertex. Coronal and sagittal reconstructions obtained from the axial data. One or more of the following dose reduction techniques were used: Automated exposure control, adjustment of the mA and/or kV according to patient size, and/or utilization of iterative reconstruction technique. DISCUSSION: Scalp/Skull: Mild focal subcutaneous edema in the left frontal scalp is present. No calvarial fracture is seen. Brain sulci: Appropriate for patient's age. Ventricles: Normal in size and configuration. No hydrocephalus. Extra-axial spaces: No masses or fluid collections. Parenchyma: No abnormal densities. No mass, hemorrhage, or large vascular territory acute infarct. Dural sinuses: No abnormal densities. Sellar/Suprasellar region: Intact. Skull base: Intact. Incidental findings: Moderate right and mild left sphenoid sinus opacification is nonspecific. IMPRESSION: No intracranial abnormalities. Signed by: Dr. Adriano Hull M.D. on 03/26/2019 6:37 PM
[2019-03-26] MEDS ORDERED: MIDAZOLAM HCL 2 MG/2 ML VIAL IV ONE (20:03)
[2019-03-26] MEDS ORDERED: MIDAZOLAM HCL 2 MG/2 ML VIAL ONE (20:08)
--- NOTE | 2019-03-26 20:26 | Diagnostic Imaging Report ---
EXAM: US PELVIS OB <14 WEEKS-HOPD DATE: 03/26/2019 12:00 AM INDICATION: Fall COMPARISON: None TECHNIQUE: Multiple transabdominal images of the uterus and fetus were obtained using lisa-scale, color Doppler and M-mode. FINDINGS: Limited examination due to overlying bowel gas. LMP 12/13/2018 A0 Type of Gestation: Mejia GA by current U/S: 14w 2d Measurements: BPD 2.5 cm 14w 2d HC 9.5 cm 14w 2d AC 7.6 cm 14w 0d FL 1.5 cm 14w 2d Visualized Anatomy: Four chamber cardiac view Regular cardiac rhythm Stomach Kidneys Bladder 3-vessel cord movement No evidence of placental previa. There is no funneling of the internal os. size is appropriate for gestational age. Position: Unable to evaluate Placental Location: Anterior, low lying Cervical Length: Unable to evaluate Amniotic Fluid Index: Unable to evaluate Heart Rate: 155 bpm IMPRESSION: Single living intrauterine without abnormality identified on very limited evaluation. Signed by: Dr. Jaquelin Borden M.D. on 03/26/2019 8:22 PM
[2019-03-26] MEDS ORDERED: LORAZEPAM INJ 2 MG/ML VIAL ONE (20:29)
[2019-03-26] MEDS ORDERED: ONDANSETRON HCL INJ 2MG/ML 2ML 2 MG/ML VIAL ONE (20:39)
[2019-03-26] MEDS ORDERED: DEXTROSE 5% 250ML 250 ML IV ONE (20:41)
[2019-03-26] MEDS ORDERED: LORAZEPAM INJ 2 MG/ML VIAL IV ONE (21:00)
[2019-03-26] MEDS ORDERED: PHENYTOIN SODIUM INJ 50 MG/ML 2 ML VIAL IV ONE (21:11)
[2019-03-26] MEDS ORDERED: SODIUM CHLORIDE 0.9% 100 ML ONE (21:19)
--- NOTE | 2019-03-26 23:10 | NUR ---
WHEN INITIALLY ATTEMPTTED REPORT FOR [facility]INT GOING TO ROOM 423, RN STOPPED ME HALF WAY THROUGH REPORT AND STATED THAT THIS PATIENT SHOULD NOT BE GOING TO A [facility] FLOOR AND INSTEAD WILL BE REDIRECTED TO ER FOR POSS TRANSFER TO DIFFERENT UNIT? AGREED TO CALL ME BACK WITH [employer] INFO SO THAT I MAY CALL REPORT. RECVD CALL FROM FLOOR NURSE WHO STATED PT WILL BE GOING TO [facility]310 IN ICU AND GAVE ME NUMBER [phone], WHEN I CALLED NUMBER I WAS FORWARDED TO SANDRA DEGROOT, WHO AT FIRST SAID WHY I WAS CALLING IF THE PATIENT WAS ALREADY THERE? SHE INITALLY WAS RELUCTANT TO TAKE ANY INFORMATION SAYING "WHAT DO YOU NEED TO TELL ME IF SHE IS ALREADY HERE"? I REPLIED THAT I WAS AWARE SHE WOULD BE GOING TO ANOTHER UNIT AND WASNT TOLD TILL JUST PRIOR TO CALLING HER, SHE ASKED ONLY A QUESTIONS ABOUT PTS SEIZURES (HOW MANY DID SHE HAVE HERE, WHAT MEDS DID WE GIVE) WHICH I ANSWERED AND THEN SHE SAID SHE HAD NO OTHER QUESTIONS AND IF I HAD ANY OTHER INFORMATION I WANTED TO SHARE, I SAID I GUESS NOT BUT SHE COULD CALL ME IF SHE HAD ANY FURTHER QUESTIONS?
== END 2019-03-26 22:50 | disposition other institution (70) ==
LOC: FSED 17:43
DX: O26.892 Other specified pregnancy related conditions, second trimester (principal); O99.352 Diseases of the nervous system complicating pregnancy, second trimester; R55 Syncope and collapse
CPT/HCPCS: 70450; 76801; 80053; 85025; 99284; J1165; J2060; J2250; J2405; J7030; J7050; J7070

== ENCOUNTER 2021-04-01 16:10 | Emergency (ER) | payer OTHER ==
[~2021-04-01] VITALS: Ht 172.7 cm; Wt 51.1 kg
[2021-04-01] MEDS ORDERED: MIDODRINE HCL2.5 MG PO (16:33)
[2021-04-01] MEDS ORDERED: SODIUM CHLORIDE 0.9% 1000ML 1,000 ML IV STA ×2 (16:36)
[2021-04-01] MEDS ORDERED: ONDANSETRON HCL INJ 2MG/ML 2ML 2 MG/ML VIAL IV ONE (16:45)
[2021-04-01] MEDS ORDERED: FAMOTIDINE 20 MG/2 ML VIAL IV ONE ×2 (16:45→16:52)
[2021-04-01] MEDS ORDERED: ONDANSETRON HCL INJ 2MG/ML 2ML 2 MG/ML VIAL ONE (16:52)
[2021-04-01] MEDS ORDERED: SODIUM CHLORIDE 0.9% 1000ML 2,000 ML ONE (16:52)
[2021-04-01] MEDS ORDERED: ZOFRAN4 MG PO (17:24)
[2021-04-01] MEDS ORDERED: FAMOTIDINE20 MG PO (17:24)
== END 2021-04-01 18:39 | disposition home or self-care (01) ==
LOC: FSED 16:16
DX: S06.0X0A Concussion without loss of consciousness, initial encounter (principal); K29.20 Alcoholic gastritis without bleeding; R11.2 Nausea with vomiting, unspecified; G40.909 Epilepsy, unspecified, not intractable, without status epilepticus; Q79.60 Ehlers-Danlos syndrome, unspecified; I49.8 Other specified cardiac arrhythmias
CPT/HCPCS: 70450; 80053; 81003; 81025; 85025; 96374; 96375; 99284; J2405; J7030